=== PATIENT | female | born 2000 | race Caucasian/White ===

== ENCOUNTER → 2023-04-05 | Outpatient (CLI) | payer BC ==
[2023-04-05 11:20] LABS: BILIRUBIN,TOTAL 0.5 mg/dL (0.2-1.2); CALCIUM 10.1 mg/dL (8.4-10.2); CREATININE, serum 0.87 mg/dL (0.57-1.11); POTASSIUM 3.6 mmol/L (3.5-4.5); TOTAL PROTEIN 7.8 gm/dL (6.2-8.1)
[2023-04-06 15:47] LABS: SJOGRENS SSA 7 U/mL (0-99); SJOGRENS SSB 9 U/mL (0-99)
== END ==
LOC: COL.LAB 10:15
PROVIDERS: Family Medicine
DX: T69.1XXA Chilblains, initial encounter (principal)